=== PATIENT | female | born 1975 | race Caucasian/White ===

== ENCOUNTER 2016-06-17 17:14 | Observation (INO) ==
[2016-06-17] MEDS ORDERED: ONDANSETRON 4 MG/2 ML VIAL IV STA (18:45)
[2016-06-17] MEDS ORDERED: SODIUM CHLORIDE 0.9% 500 ML IV STA (18:45)
[2016-06-17] MEDS ORDERED: ASPIRIN 325 MG TABLET PO STA (18:45)
[2016-06-17] MEDS ORDERED: LABETALOL 20 MG/4 ML SYRINGE IV STA (18:46)
[2016-06-17] MEDS ORDERED: fentaNYL 100 MCG/2 ML VIAL IV STA (18:46)
--- NOTE | 2016-06-17 18:49 | EKG Report ---
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
[2016-06-17] MEDS ORDERED: ONDANSETRON 4 MG/2 ML VIAL ONE (18:52)
[2016-06-17] MEDS ORDERED: ASPIRIN 325 MG TABLET ONE (18:52)
[2016-06-17] MEDS ORDERED: fentaNYL 100 MCG/2 ML VIAL ONE (18:53)
[2016-06-17] MEDS ORDERED: LABETALOL 20 MG/4 ML SYRINGE IV ONE (18:53)
[2016-06-17 19:00] LABS: Basophils # 0.1 10*3/uL (0.0-0.2); Basophils % 0.5 % (0.0-0.8); Eosinophils # 0.1 10*3/uL (0.0-0.87); Eosinophils % 0.7 % (0.00-10.9); Hematocrit 40.5 VOL% (35.7-47.0); Hemoglobin 13.7 GM/DL (12.0-16.0); Immature Granulocytes % 0.2 %; Immature Granulocytes Absolute 0.02 #; Lymphocytes # 3.8 10*3/uL (1.4-4.0); Lymphocytes % 40.5 % (21.3-54.2); Mean Corpuscular HGB Conc 33.8 GM/DL (32-36); Mean Corpuscular Hemoglobin 29 PG (27-34); Mean Corpuscular Volume 86.4 FL (87-102); Mean Platelet Volume 11.2 FL (9.6-12.0); Monocytes # 0.9 10*3/uL (0.11-0.8); Monocytes % 9.9 % (1.7-12.7); Neutrophils # 4.6 10*3/uL (1.4-7.4); Neutrophils % 48.2 % (38.7-73.9); Platelet Count 245 T/CUMM (130-400); Red Blood Count 4.69 MC/CUMM (3.8-5.5); Red Cell Distribution Width 12.2 % (9.3-17.3); White Blood Count 9.4 T/CUMM (4-12)
[2016-06-17 19:14] LABS: Alanine Aminotransferase 28 U/L (13-56); Albumin 3.9 G/DL (3.4-5.0); Alkaline Phosphatase 98 U/L (45-117); Aspartate Amino Transferase 15 U/L (0-37); Bilirubin,Total < 0.39 MG/DL (0.2-1.0); Blood Urea Nitrogen 13 MG/DL (7-18); Calcium 8.7 MG/DL (8.5-10.1); Glucose 103 MG/DL (74-106); Magnesium 2.1 MG/DL (1.8-2.4); Osmolality,Calculated 285.8 MOS/KG (273-304); Potassium 3.4 MMOL/L (3.5-5.1); Sodium 144 MMOL/L (136-145); Total Protein 7.5 G/DL (6.4-8.3)
--- NOTE | 2016-06-17 19:14 | CT Report ---
History: Headache and confusion Date: 06/17/2016 Study: CT head without contrast Comparison exam: No previous head CT available. Previous brain MRI February 01, [address] sections were obtained through the head without IV contrast. Total DLP measures 970.1 mGy*cm. The ventricles are midline in position without evidence of hydrocephalus. There is no mass or parenchymal hemorrhage. There is no gross CT evidence of acute cortical stroke. There is no extra-axial hematoma. There is minimal mucosal thickening in the ethmoid air cells. There is no acute abnormality of the calvarium Impression: No acute intracranial abnormality compared to the previous MRI. Ethmoid sinus disease which may be chronic or allergic PROCEDURE INTERPRETED AT [facility] DEPARTMENT OF RADIOLOGY Final Report Signed by: Dr. Berta Sterling
--- NOTE | 2016-06-17 19:24 | XRay Report ---
History: Chest pain Date: 06/17/2016 Study: Chest x-ray PA and lateral Comparison exam: Chest x-ray November 17, 2015 The cardiomediastinal silhouette and pulmonary vasculature are unremarkable. The lungs and pleural spaces are clear. The osseous structures are unremarkable. Impression: No acute cardiopulmonary process. No significant interval change PROCEDURE INTERPRETED AT [facility] DEPARTMENT OF RADIOLOGY Final Report Signed by: Dr. Berta Sterling
[2016-06-17] MEDS ORDERED: ENOXAPARIN 40 MG/0.4 ML SYRINGE SUBCUT SCH (22:07)
[2016-06-17] MEDS ORDERED: ONDANSETRON 4 MG/2 ML VIAL IV PRN (22:07)
[2016-06-17] MEDS ORDERED: ACETAMINOPHEN 325 MG TABLET PO PRN (22:07)
[2016-06-17] MEDS ORDERED: ZALEPLON 5 MG CAPSULE PO PRN (22:07)
--- NOTE | 2016-06-17 22:19 | Emergency Department Note ---
Waylon Araya Brooke, am scribing for, and in the presence of, Dayanna Turk DO 18:50. IBurke Catherine, DO, personally performed the services described in this documentation, ascribed by Sofia Connors in my presence, and it is both accurate and complete . Arrival - Arrival Chief Complaint: Blood Pressure Stated Complaint: BP, HEART RATE ED Nursing Triage Note: Pt sent from [facility] for High BP, high HR, and fever. Pt started not feeling well on . Mode of Arrival: Ambulatory Limitations: No Limitations Source: Patient, RN Notes Reviewed Time Seen by Provider: 06/17/16 18:12 - History of Present Illness HPI Narrative: Patient is a 40 year old female who presents to the ED with c/o elevated blood pressure and heart rate that has been ongoing for the past "three or four days. " She says she has been having problems with her heart rate since February. She says she saw a doctor at the [facility], in February, and was put on a beta jaskaran and was told they would get her an appointment with a Landscape Laborer to have a stress test done, but never did. She says she just recently started having problems with the elevated blood pressure and that her medication was just changed recently. Patient went to the [facility] prior to coming here and they wanted her to come here to be checked out. Patient says her blood pressure was 178/110 and that her heart rate was in the 120s when she arrived at the clinic. She says she had a temperature of 99.9 so they did flu, strep, and urine tests but all come back fine. She says she did have some confusion, for the first time, while at the clinic today. Patient denies having any chest pain, syncope, or cough but says she has a headache and did have diarrhea this morning. Patient says she is fine when sitting. She also says her "skin feels like it's on fire." Patient says she had hormone pellets "put in" last monday but the doctor in [place] didn't think that would be causing these problems. Patient has PMHx of HTN. She does not smoke. patient reports taking her meds as directed and reports that when she takes th beta jaskaran it makes her extremely tired Onset (ago): day(s) (3 or 4 days) Consistency: intermittent Severity: moderate Severity scale (1-10): 5 Quality: cramping, stabbing, other (has had episodes of " tunnel " vision and weakness this week) Date of Last Menstrual Period: HYST Allergies/Adverse Reactions: Allergies Allergy/AdvReac Type Severity Reaction Status Date / Time morphine AdvReac Swelling Verified 03/15/15 11:01 of Lip/Tongue/Throat Home Medications: Home Medications Medication Instructions Recorded Confirmed Type Atorvastatin [Lipitor] 20 mg PO BEDTIME 06/17/16 06/17/16 History Metoprolol Succinate Xl [Toprol Xl] 50 mg PO DAILY 06/17/16 06/17/16 History Triamterene/Hydrochlorothiazid 1 each PO DAILY 06/17/16 06/17/16 History [Triamterene-Hctz 50-25 mg Cap] Review of System - Review of System 12 point system: reviewed and no additional remarkable complaints except as stated - Review of System Constitutional: Absent: fever Respiratory: Absent: cough, respiratory distress Cardiovascular: Present: other (elevated blood pressure and heart rate). Absent : chest pain Gastrointestinal: Present: nausea, diarrhea. Absent: vomiting Genitourinary female: Present: other (S/P hysterectomy). Absent: abnormal menses Skin: Absent: rash Neurological: Present: headache Medical,Surgical,& Family Hx - Medical History Cardio: History of: Hypertension Endocrine: History of: Dyslipidemia Musculoskeletal: History of: Back/Neck Problems - Surgical History Reproductive Surgeries: Surgical HX of;: Hysterectomy - Family History Family History: Reports;: Family Hypertension - Social History Smoking Status: Never smoker Have you smoked in the last 12 months: No Frequency of Alcohol Use: None Type of Drug Use: None Marital Status: Lives With:: Spouse Functional capacity: independent ambulation Exam Vital Signs: Vital Signs Temperature 98.1 F 06/17/16 19:38 Pulse Rate 83 06/17/16 21:15 Respiratory Rate 14 06/17/16 21:15 Blood Pressure 125/79 06/17/16 21:15 O2 Sat by Pulse Oximetry 100 06/17/16 21:15 - General General appearance: alert, in no apparent distress - Head Head exam: Present: atraumatic, normocephalic - Eye Eye exam: Present: normal appearance, PERRL, EOMI - ENT ENT exam: Present: normal exam - Neck Neck exam: Present: normal inspection - Chest Chest inspection: Present: normal inspection, symmetric chest wall rise - Respiratory Respiratory exam: Present: normal lung sounds bilaterally - Cardiovascular Cardiovascular exam: Present: regular rate, normal rhythm, normal heart sounds, other (elevated blood pressure) - Abdominal Exam Abdominal exam: Present: soft, normal bowel sounds. Absent: distention, tenderness, guarding, rebound, rigidity - Extremities Exam Extremities exam: Present: normal inspection, full ROM. Absent: tenderness - Back Exam Back exam: Present: normal inspection - Neurological Exam Neurological exam: Present: alert, oriented X3 - Psychiatric Psychiatric exam: Present: normal affect, normal mood - Skin Skin exam: Present: warm, dry, intact, normal color Course Course Narrative: she is feeling better after the medication and she states her head feels better too. We have discussed all her test results and she agrees to stay in obs and have further cardiac enzymes done and her meds adjusted. - Consultations Consultation #1: Dr. Ramos Time: 21:30 (obs) Results - Labs CBC & BMP: 06/17/16 18:45 06/17/16 18:45 Lab Results: I have reviewed the patients labs Labs: Laboratory Tests 06/17/16 18:45 MCV 86.4 L [place] # (Auto) 0.9 H Laboratory Tests 06/17/16 18:45 Potassium 3.4 L Globulin 3.6 H Albumin/Globulin Ratio 1.0 L - EKG EKG results: interpreted by ERMD - Impressions sinus tach - no other acute findings - Diagnostic Findings Procedure: Chest x-ray: report reviewed by me (No acute cardiopulmonary process. No significant interval change.), CT: report reviewed by me (CT head/ brain wo con: No acute intracranial abnormality compared to the previous MRI.) Disposition Clinical Impression: Chest pain, HTN (hypertension) Case discussed with: patient, patient's family Disposition: Still a Patient Condition: Stable Time of Disposition: 21:55
--- NOTE | 2016-06-17 23:28 | Hospitalist History & Physical ---
Assessment and Plan (1) HTN (hypertension) Status: Acute Assessment and plan: The patient seems to have untreated uncontrolled high blood pressure causing shortness of breath and weakness. She did not tolerate metoprolol well enough to take it daily. We will change her antihypertensive regimen to Coreg plus amlodipine and continue with Dyazide fluid tab. We will recheck troponin, EKG, and electrolytes in the morning with the goal to control blood pressure adequate for discharge in the morning Current Visit: Yes Qualifiers: Hypertension type: essential hypertension Qualified Code(s): I10 - Essential (primary) hypertension History of Present Illness Chief complaint: weakness and palpitations History of present illness: Ms. Driscoll is a 41 year old female who attends the [facility] and sees Sarita Mendes or treatment of essential hypertension. The patient also has history of palpitations and her blood pressure medication was metoprolol to help with the palpitations. The patient has a feeling of decreased exercise capacity which she takes the metoprolol so her compliance is variable. On the date of admission the hospital the patient noted that she had palpitations, some vertiginous feelings and generalized weakness. She associated that with essential hypertension exacerbation. The patient went to the [facility] and was seen to have systolic pressure greater than 200. She was referred to the emergency room here at [facility] for further evaluation. During the transportation the patient had some increasing palpitation and shortness of breath. She is now admitted to the hospital for further evaluation of hypertension, concerned about possible chest pain, and associated hypertension. The patient denies fever, chills, dysuria. The patient's weakness is moderate , continuous, and improving with rest in the hospital. Home Medications Medication Instructions Recorded Confirmed Type Atorvastatin [Lipitor] 20 mg PO BEDTIME 06/17/16 06/17/16 History Metoprolol Succinate Xl [Toprol Xl] 50 mg PO DAILY 06/17/16 06/17/16 History Triamterene/Hydrochlorothiazid 1 each PO DAILY 06/17/16 06/17/16 History [Triamterene-Hctz 50-25 mg Cap] Allergies Allergy/AdvReac Type Severity Reaction Status Date / Time morphine AdvReac Swelling Verified 03/15/15 11:01 of Lip/Tongue/Throat Medical,Surgical,& Family Hx - Medical History Cardio: History of: Hypertension Endocrine: History of: Dyslipidemia Musculoskeletal: History of: Back/Neck Problems - Surgical History Reproductive Surgeries: Surgical HX of;: Hysterectomy - Family History Family History: Reports;: Family Hypertension - Social History Smoking Status: Never smoker Frequency of Alcohol Use: None Type of Drug Use: None Marital Status: Lives With:: Spouse Functional capacity: independent ambulation 12 point system: reviewed and no additional remarkable complaints except as stated Exam - Constitutional Vitals: Period Temp Pulse Resp BP Sys/Espinal Pulse Ox Last 24 Hr 83 14 125/79 100 Exam: Constitutional System: No distress. No tremulousness. Head: Normocephalic, atraumatic. Ears, Nose and Throat System: No evidence of Otitis or Mastoiditis. No epistaxis or discharge Eyes System: Pupils equal, round, and reactive. Extraocular muscles intact. Neck: Supple, without adenopathy, No jugular venous distention. No thyromegaly , neck mass, or prior surgery apparent. Respiratory System: Chest clear to auscultation. Cardiovascular System: Heart with regular rate and rhythm. No murmur. GI System: Abdomen soft, nontender. Normoactive bowel sounds present. Musculoskeletal System: limbs with no pedal edema. Full distal pulses. Neurological System: No discernable sensory deficit. No aphasia Psychiatric System: Conversation is rational Results - Labs CBC & BMP: 06/17/16 18:45 06/17/16 18:45 Lab Results: I have reviewed the past 24 hour labs
[2016-06-18] MEDS ORDERED: INFLUENZA VIRUS VACCINE 0.5 ML SYRINGE IM ONE (00:07)
[2016-06-18] MEDS: CARVEDILOL 6.25 MG TABLET PO SCH ×2 (01:06→09:28)
[2016-06-18] MEDS: amLODIPine 5 MG TABLET PO SCH ×2 (01:08→09:28)
[2016-06-18 01:13] LABS: Basophils % 0.4 % (0.0-0.8); Eosinophils # 0.1 10*3/uL (0.0-0.87); Eosinophils % 0.9 % (0.00-10.9); Hematocrit 36.4 VOL% (35.7-47.0); Hemoglobin 12.4 GM/DL (12.0-16.0); Immature Granulocytes % 0.1 %; Immature Granulocytes Absolute 0.01 #; Lymphocytes # 4.3 10*3/uL (1.4-4.0); Lymphocytes % 46.5 % (21.3-54.2); Mean Corpuscular HGB Conc 34.1 GM/DL (32-36); Mean Corpuscular Hemoglobin 30 PG (27-34); Mean Corpuscular Volume 86.9 FL (87-102); Mean Platelet Volume 10.8 FL (9.6-12.0); Monocytes # 0.9 10*3/uL (0.11-0.8); Neutrophils # 3.9 10*3/uL (1.4-7.4); Neutrophils % 42.1 % (38.7-73.9); Platelet Count 210 T/CUMM (130-400); Red Blood Count 4.19 MC/CUMM (3.8-5.5); Red Cell Distribution Width 12.4 % (9.3-17.3); White Blood Count 9.2 T/CUMM (4-12)
[2016-06-18 01:35] LABS: Blood Urea Nitrogen 12 MG/DL (7-18); Calcium 8.2 MG/DL (8.5-10.1); Glucose 105 MG/DL (74-106); Magnesium 2.2 MG/DL (1.8-2.4); Osmolality,Calculated 287.7 MOS/KG (273-304); Potassium 3.1 MMOL/L (3.5-5.1); Sodium 145 MMOL/L (136-145); Troponin I Only < 0.015 NG/ML (0.00-0.045)
--- NOTE | 2016-06-18 08:56 | EKG Report ---
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
[2016-06-18] MEDS ORDERED: PANTOPRAZOLE 40 MG TABLET PO SCH (09:00)
[2016-06-18] MEDS ORDERED: TRIAMTERENE 50 MG CAPSULE PO SCH (09:00)
[2016-06-18] MEDS ORDERED: hydroCHLOROthiazide 25 MG TABLET PO SCH (09:00)
[2016-06-18 12:39] VITALS: BP 140/70
--- NOTE | 2016-06-18 12:39 | Discharge Summary ---
Hospital Course - Hospital Course Hospital Course: The patient was admitted to the hospital with essential hypertension uncontrolled. It was associated with headache, shortness of breath and weakness. The patient had some labetalol in the emergency room. I changed her antihypertensive regimen to Dyazide plus Coreg plus amlodipine. The patient's blood pressure is now well controlled and her previous symptoms have resolved. The patient is ready for discharge home and follow-up with her primary care provider at [facility]. On the date of discharge, chest clear, abdomen soft, heart has regular rate and rhythm. The patient will be on step care. She is to take Norvasc 5 mg plus Coreg 12.5 mg daily. If she has edema she should take Dyazide 1 a day. If blood pressure is not sufficiently controlled she is to increase Coreg to 12.5 mg twice daily. If this is insufficient she is to increase Norvasc to 10 mg daily. - Time spent with patient Time with patient DS: Greater than 30 minutes Diagnosis - Discharge Diagnosis (1) HTN (hypertension) Status: Chronic Discharge Plan - Discharge Data Disposition: Disch To Home/Self Care Condition at Discharge: Stable Discharge Diet: low salt diet Activity: resume usual activities as tolerated Hygiene: no restrictions - Discharge Medications New Carvedilol [Coreg] 6.25 mg PO DAILY #100 tablet amLODIPine [Norvasc] 5 mg PO DAILY #100 tablet Continue Atorvastatin [Lipitor] 20 mg PO BEDTIME Discontinued Triamterene/Hydrochlorothiazid [Triamterene-Hctz 50-25 mg Cap] 1 each PO DAILY Metoprolol Succinate Xl [Toprol Xl] 50 mg PO DAILY - Follow Up or Referral - Forms/Instructions Exam - Constitutional Vitals: Period Temp Pulse Resp BP Sys/Espinal Pulse Ox Last 24 Hr 96.5 F-97.8 F 83-98 14-20 115-127/64-79 97-100 Discharge Results Labs on day of discharge: Labs from last 24 hours 06/18/16 06/18/16 06/18/16 00:56 00:56 00:56 WBC 9.2 RBC 4.19 Hgb 12.4 Hct 36.4 MCV 86.9 L MCH 30 MCHC 34.1 RDW 12.4 Plt Count 210 MPV 10.8 Neut % (Auto) 42.1 Lymph % (Auto) 46.5 [place] % (Auto) 10.0 Eos % (Auto) 0.9 Baso % (Auto) 0.4 Neut # (Auto) 3.9 Lymph # (Auto) 4.3 H [place] # (Auto) 0.9 H Eos # (Auto) 0.1 Baso # (Auto) 0.0 Immature Gran % 0.1 Nucleated RBC % 0.0 Immature Gran # 0.01 Nucleated RBCs # 0.00 Sodium 145 Potassium 3.1 L Chloride 104 Carbon Dioxide 30 Anion Gap 14.1 BUN 12 Creatinine 0.70 GFR Calculation 140 BUN/Creatinine Ratio 17.00 Glucose 105 Calculated Osmolality 287.7 Calcium 8.2 L Magnesium 2.2 Total Creatine Kinase 88 Troponin I < 0.015 TSH 3rd Generation 5.330 H 06/17/16 22:26 WBC RBC Hgb Hct MCV MCH MCHC RDW Plt Count MPV Neut % (Auto) Lymph % (Auto) [place] % (Auto) Eos % (Auto) Baso % (Auto) Neut # (Auto) Lymph # (Auto) [place] # (Auto) Eos # (Auto) Baso # (Auto) Immature Gran % Nucleated RBC % Immature Gran # Nucleated RBCs # Sodium Potassium Chloride Carbon Dioxide Anion Gap BUN Creatinine GFR Calculation BUN/Creatinine Ratio Glucose Calculated Osmolality Calcium Magnesium Total Creatine Kinase Troponin I < 0.015 TSH 3rd Generation DS: Provider Date of admission: 06/17/16 21:11 Primary care physician: Sarita Mendes NP Attending physician on admission: Pepito Ramos MD Consults: 06/18/16 00:07 Consult to Pastoral Services [CONS] Routine Comment: Pastoral Screen: Request 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
[2016-06-18] MEDS ORDERED: ATORVASTATIN 20 MG TABLET PO SCH (21:00)
== END 2016-06-18 14:00 | disposition home or self-care (01) ==
LOC: N.EDINP 17:14 → N.ED 17:14 → N.4E 21:59
PROVIDERS: ADMIT Internal Medicine; ATTEND Internal Medicine